=== PATIENT | female | born 1950 | race African-American/Black ===

== ENCOUNTER 2022-12-31 17:12 | Emergency (ER) | payer OTHER ==
[~2022-12-31] VITALS: Ht 175.3 cm; Wt 90.0 kg
[2022-12-31] MEDS ORDERED: ACETAMINOPHEN 325MG TABLET PO NR (19:30)
[2022-12-31] MEDS ORDERED: LIDOCAINE 5% PATCH TOP SCH (19:30)
[2022-12-31 19:39] VITALS: BP 150/90
[2022-12-31] MEDS ORDERED: LIDO700A15 TP (20:47)
[2022-12-31] MEDS ORDERED: ACET-2708 MT (20:47)
== END 2022-12-31 21:27 | disposition home or self-care (01) ==
LOC: ER 17:12
DX: S13.4XXA Sprain of ligaments of cervical spine, initial encounter (principal); M25.551 Pain in right hip; V49.49XA Driver injured in collision with other motor vehicles in traffic accident, initial encounter; Y93.89 Activity, other specified; Y92.89 Other specified places as the place of occurrence of the external cause; Y99.8 Other external cause status; I10 Essential (primary) hypertension
CPT/HCPCS: 71045; 72170; 73030; 99284